=== PATIENT | male | born 1985 | race Caucasian/White ===

== ENCOUNTER 2021-10-30 14:50 | Emergency (ER) | payer SELFPAY ==
--- NOTE | 2021-10-30 15:09 | XR_ITS ---
WS: [id number] XR foot LT min 3V* [id number] REASON FOR EXAM: crush injury/pain FINDINGS: No fracture or dislocation identified. No focal bone lesion. Joint spaces of the forefoot, midfoot, and hindfoot are well preserved. XR/XR foot LT min 3V* [id number] IMPRESSION: No acute abnormality.
[2021-10-30 15:15] VITALS: BP 130/85; PULSE 90; RESP 18; TEMP 37.3; O2SAT 97; BMI 42.2
[2021-10-30 15:30] VITALS: PULSE 87
--- NOTE | 2021-10-30 16:28 | W.ED.LOWEXIN ---
HPI - Extremity Injury (Lower) General: Chief Complaint: Extremity Injury, Lower Stated Complaint: DROPPED WEIGHT ON L FOOT Time Seen by Provider: 10/30/21 16:26 Source: patient Mode of arrival: ambulatory Limitations: no limitations History of Present Illness: HPI Narrative: Patient is a 36-year-old male who presents to ED today for evaluation of a left foot injury. Patient states 4 days ago he dropped a weight onto the dorsal aspect of his foot. Patient states he has continued to have pain. He noticed today a shooting pain in his pinky toe. He has noticed some mild bruising to this area. Patient has not noticed any significant swelling. Sensory intact. He has no injuries or complaints at this time. He has continued to be ambulatory on the foot since the event but places most of his weight on his hindfoot. complaint: foot injury Onset (ago): day(s) Injury: Left: foot Type of Injury: blunt Place: home Relieving factors: immobilization Exacerbating factors: weight bearing and palpation Context: direct blow Associated symptoms: Reports no associated symptoms Other symptoms: none Review of Systems Musc: Reports: extremity pain (L foot); Denies: extremity swelling, joint pain or joint swelling Neuro: Denies: numbness in extremities or sensory changes Physical Exam Const: COMMON NORMALS: no limitations Extremity: COMMON NORMALS: capillary refill normal GENERAL: Yes normal exam except as noted LEFT LOWER EXTREMITY: Yes foot & digits (mild tenderness and swelling to dorsal L foot; no bony deformities noted) Left foot and digits: Yes inspection (very scant ecchymosis to medial aspect 5th toe) and Yes neurovascular exam (normal) Neuro: COMMON NORMALS: moves all extremities, no focal motor deficits and no sensory deficits noted Skin: NARRATIVE SKIN EXAM: see extremity assessment for pertinent skin findings Course Vital Signs: Vital signs: Vital Signs Temperature 99.2 F 10/30/21 15:15 Pulse Rate 90 10/30/21 15:15 Respiratory Rate 18 10/30/21 15:15 Blood Pressure 130/85 10/30/21 15:15 Pulse Oximetry 97 10/30/21 15:15 MDM - Extremity Injury (Lower) MDM Narrative: Medical decision making narrative: XR negative. RICE therapy discussed. Patient did not want DESIREE/crutches. Imaging Data^: XR L foot: Radiologist's impression: [address] [address] XRay Report Signed Patient: Maykel Patel Unit #: [id number] : 1985 Age/Sex: 36 / M ADM Date: 10/30/21 Loc: ER Room/Bed: Attending Dr: Ordering Provider/Ordering MD: Marylou Coronado Date of Service: 10/30/21 Procedure(s): XR foot LT min 3V* [id number] Accession Number(s): [id number] Report Number: [id number] WS: [id number] XR foot LT min 3V* [id number] REASON FOR EXAM: crush injury/pain FINDINGS: No fracture or dislocation identified. No focal bone lesion. Joint spaces of the forefoot, midfoot, and hindfoot are well preserved. XR/XR foot LT min 3V* [id number] IMPRESSION: No acute abnormality. 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
[2021-10-30 19:40] VITALS: BP 149/80; PULSE 87; RESP 18; O2SAT 98
--- NOTE | 2021-10-30 19:41 | PC.NURSE ---
pt d/c at [facility]
== END 2021-10-30 16:40 | disposition home or self-care (01) ==
PROVIDERS: Emergency Provider Physician Assistant
DX: S90.32XA Contusion of left foot, initial encounter (principal); W20.8XXA Other cause of strike by thrown, projected or falling object, initial encounter
CPT/HCPCS: 73630; 99282

== ENCOUNTER → 2021-11-28 10:21 | Outpatient (BNVA) | payer SELFPAY | PROVIDERS: Visit Provider Nurse Practitioner Family | DX: Z20.822 Contact with and (suspected) exposure to COVID-19 (principal) | CPT/HCPCS: 87635 ==

== ENCOUNTER → 2021-12-04 15:12 | Outpatient (BNVA) | payer OTHER, SELFPAY | PROVIDERS: Visit Provider Nurse Practitioner Family | DX: Z20.822 Contact with and (suspected) exposure to COVID-19 (principal) | CPT/HCPCS: 87635 ==

== ENCOUNTER 2023-11-18 11:30 | Outpatient (CLI) | payer MEDICARE, SELFPAY | END 2023-11-18 11:31 | disposition home or self-care (01) | LOC: SLEEP 11-19 11:13 | PROVIDERS: Visit Provider Family Medicine | DX: G47.33 Obstructive sleep apnea (adult) (pediatric) (principal); G47.10 Hypersomnia, unspecified | CPT/HCPCS: G0399 ==

== ENCOUNTER 2024-08-17 16:16 | Emergency (ER) | payer MEDICARE, SELFPAY ==
[2024-08-17 16:21] VITALS: BP 161/85; PULSE 73; RESP 16; TEMP 36.4; O2SAT 96
--- NOTE | 2024-08-17 16:33 | XRR_ITS ---
PROCEDURE INFORMATION: Exam: XR Right Foot Exam date and time: 08/17/2024 4:44 PM Age: 39 years old Clinical indication: Injury or trauma; Fall; Sprain or strain; Foot; Right TECHNIQUE: Imaging protocol: Radiologic exam of the right foot. Views: 3 or more views. COMPARISON: l spine FINDINGS: Bones/joints: there are no fractures or dislocations. Soft tissues: Minimal soft tissue swelling on the dorsum of the foot. XR/XR foot RT min 3V* [id number] IMPRESSION: Soft tissue swelling of the dorsum of the foot with no fractures or dislocations.
--- NOTE | 2024-08-17 16:33 | XRR_ITS ---
PROCEDURE INFORMATION: Exam: XR Left Foot Exam date and time: 08/17/2024 4:44 PM Age: 39 years old Clinical indication: Injury or trauma; Fall; Sprain or strain; Foot; Left TECHNIQUE: Imaging protocol: Radiologic exam of the left foot. Views: 3 or more views. COMPARISON: CR XR foot LT min 3V* [id number] 10/30/2021 3:45 PM FINDINGS: Bones/joints: No fractures or dislocations. Calcaneal spur. Cortical prominence on the lateral aspect of the 4th metatarsal which may be due to an old fracture. Soft tissues: Normal. XR/XR foot LT min 3V* [id number] IMPRESSION: No acute findings.
--- NOTE | 2024-08-17 16:33 | W.ED.LOWEXIN ---
HPI - Extremity Injury (Lower) General: Chief Complaint: Extremity Injury, Lower Stated Complaint: fall Time Seen by Provider: 08/17/24 16:28 Source: patient Mode of arrival: wheelchair Limitations: no limitations History of Present Illness: Patient is a 39-year-old male presents to ED today with complaint of pain in both of his feet following a fall. Patient states he was in the [employer] parking lot and fell/tripped over an uneven asphalt surface. He states afterwards both of his feet were hurting. He denies any other injury sustained during the fall. He denies striking his head or LOC. No neck or back pain at time of presentation. Patient states he is able to ambulate on the extremities. He has not noticed any deformities or significant swelling or bruising. MD complaint: foot injury Onset (ago): hour(s) Injury: Bilateral: foot Place: street/outdoors ([employer] parking lot) Severity: moderate Relieving factors: immobilization Exacerbating factors: weight bearing Context: fall Associated symptoms: Reports no associated symptoms Other symptoms: none Related Data Home Medications Medication Instructions Recorded Confirmed No Known Home Medications 11/28/21 12/04/21 Allergies Allergy/AdvReac Type Severity Reaction Status Date / Time No Known Allergies Allergy Verified 12/04/21 08:32 Review of Systems Musc: Reports: extremity pain (bilateral feet); Denies: neck pain, back pain, extremity swelling, joint pain or joint swelling Neuro: Denies: headache(s) [facility] ED PFSH: Social History Substance/Drug Use: current Other substance/drug use details: medical marijuana edibles, 15 mcg BID Physical Exam Const: COMMON NORMALS: no acute distress, no limitations, alert and well nourished GENERAL APPEARANCE: cooperative NUTRITIONAL APPEARANCE: overweight ORIENTATION/CONSCIOUSNESS: Yes awake, Yes oriented to person, Yes oriented to place and Yes oriented to time HENMT: COMMON NORMALS: normocephalic and atraumatic HEAD & SCALP: normal to inspection, normocephalic and atraumatic Neck/C-Spine: CERVICAL SPINE: No Cervical spine tenderness Back/Pelvis: COMMON NORMALS: thoracic and lumbar spine normal to inspection and no thoracic nor lumbar tenderness Extremity: COMMON NORMALS: full ROM, capillary refill normal, no joint enlargement, no clubbing, cyanosis or edema, no calf tenderness and no pedal edema GENERAL: Yes normal exam except as noted RIGHT LOWER EXTREMITY: Yes foot & digits LEFT LOWER EXTREMITY: Yes foot & digits OTHER: bilateral tenderness to feet without bony deformities or edema; both extremities NV intact Neuro: COMMON NORMALS: moves all extremities, no focal motor deficits and no sensory deficits noted SENSORIUM/ORIENTATION: Yes alert, Yes oriented to person, Yes oriented to place and Yes oriented to time Course Vital Signs: Vital signs: Vital Signs Temperature 97.6 F 08/17/24 16:21 Pulse Rate 71 08/17/24 17:22 Respiratory Rate 18 08/17/24 17:22 Blood Pressure 153/97 08/17/24 17:22 Pulse Oximetry 96 08/17/24 17:22 Oxygen Delivery Me thod Room Air 08/17/24 16:21 MDM - Extremity Injury (Lower) Medical Decision Making XR personal interpretations are negative. Patient will be instructed to ice and elevate the extremities. He may take [id number] analgesics to help with discomfort. He can follow-up with primary care in 1 to 2 weeks if symptoms do not seem to be improving. Medical Records I reviewed the patient's medical records. Lab Data Radiology Impressions Foot X-Ray 08/17/24 16:33 IMPRESSION: No acute findings. XR interpretation done by ED provider, pending radiology final review Discharge Plan Discharge Patient Disposition: Home Clinical Impression: Bilateral foot pain Fall Qualifiers: Encounter type: initial encounter Qualified Code(s): W19.XXXA - Unspecified fall, initial encounter Condition: Stable Prescriptions: No Action No Known Home Medications Discharge Orders: Discharge ED (Routine); Ordered 08/17/24 Ordered By: Marylou Coronado Activity Restrictions/Additional Instructions: As we discussed, I do not visualize any acute fractures on your foot x-rays. Radiology will overread these. If they see something you will be contacted. As we discussed you may ice and elevate the extremities. Weightbearing as tolerated. Please follow-up with your primary care provider in 1 to 2 weeks. 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
[2024-08-17 17:22] VITALS: BP 153/97; PULSE 71; RESP 18; O2SAT 96
== END 2024-08-17 17:24 | disposition home or self-care (01) ==
PROVIDERS: Emergency Provider Physician Assistant
DX: M79.672 Pain in left foot (principal); M79.671 Pain in right foot; W01.0XXA Fall on same level from slipping, tripping and stumbling without subsequent striking against object, initial encounter; Y92.481 Parking lot as the place of occurrence of the external cause
CPT/HCPCS: 73630; 99283